=== PATIENT | male | born 1970 | race Two or more races ===

== ENCOUNTER 2017-02-23 10:53 | Day surgery (SDC) | payer OTHER ==
[~2017-02-23] VITALS: Ht 162.6 cm; Wt 60.0 kg
[~2017-02-23 10:53] MED LIST: OMEPRAZOLE20 MG PO; SUDAFED 12-HOU120 MG PO; VENTOLIN HFA18 GM INH
--- NOTE | 2017-02-23 13:31 | NUR ---
02/23/17 4089 Sammy Syed pATIENT AND HERE A LITTLE LONGER THEY HAD A LOT OF QUESTIONS AND I SPENT TIME ANSWERING AND REASSURRING THEM. I DID GIVE THEM THE PHONE NUMBER TO THE [facility] AND INSTRUCTED THEM THAT THEY MAY HAVE MORE INFO REGARDING HIS CONDITION AND WHEN THE BONE MARROW RESULTS WOULD BE AVAILABLE. pATIENT HAS A F/U APPT FOR 03/09/[address] SNOW.
--- NOTE | 2017-02-25 09:10 | OR ---
[facility] [address] [place] [address] Signed DATE OF OPERATION: 02/23/2017 SURGEON: Andrey Snow MD PROCEDURE: Left posterior iliac crest bone marrow biopsy and aspirate. DESCRIPTION OF PROCEDURE: After explaining the risks, benefits, and alternatives, the bone marrow biopsy and aspiration under conscious sedation for evaluation of chronic eosinophilia and obtaining informed written consent, the patient was taken to a private part of the postanesthesia recovery unit where a time-out was taken and the patient and the procedure were correctly identified. The patient was placed in the prone position. The left posterior iliac crest was prepped and draped in the usual sterile manner. Conscious sedation was provided by SEEMA Ayala, with 100 mcg of intravenous fentanyl and 4 mg of intravenous Versed. Local anesthesia over the left posterior iliac crest was obtained with 1 mL of 1% lidocaine and a left posterior iliac crest bone marrow biopsy and aspirate were obtained without adverse effects. Andrey Snow MD RCQ/MODL /[id number] Electronically Signed By: ANDREY SNOW MD 02/25/17 0910 PATIENT NAME: KAMALJIT TORIBIO OPERATIVE REPORT DATE OF : 74 PHYSICIAN: ANDREY SNOW MD REPORT #: [id number] REPORT IS CONFIDENTIAL AND NOT TO BE RELEASED WITHOUT AUTHORIZATION
[2017-04-15] MEDS ORDERED: FLOVENT HFA10.6 GM INH (14:06)
== END 2017-02-23 13:19 | disposition home or self-care (01) ==
LOC: DS 10:53 → OPS 10:53 → DS 12:00 → OPS 12:00
PROVIDERS: Specialist
PROC: 07DR3ZX Extraction of Iliac Bone Marrow, Percutaneous Approach, Diagnostic (ICD-10-PCS; principal; 2017-02-23 12:00)
DX: D72.1 Eosinophilia (principal); J44.9 Chronic obstructive pulmonary disease, unspecified
CPT/HCPCS: 36415; 80053; 83615; 85025; 86318; 99152; J2250; J3010; J7120

== ENCOUNTER 2017-06-14 10:14 | Day surgery (SDC) | payer OTHER ==
[~2017-06-14] VITALS: Ht 162.6 cm; Wt 60.8 kg
[~2017-06-14 10:14] MED LIST changes: +FLOVENT HFA10.6 GM INH
[2017-06-14] MEDS ORDERED: KEFLEX500 MG PO (13:22)
[2017-06-14] MEDS ORDERED: NORCO 5-325 TA1 EACH PO (13:23)
--- NOTE | 2017-06-28 14:15 | OR ---
[facility] [address], [place] [address] Signed DATE OF OPERATION: 06/14/2017 SURGEON: Albin Gonzalez MD PREOPERATIVE DIAGNOSIS: Chronic sinonasal polyposis. POSTOPERATIVE DIAGNOSIS: Chronic sinonasal polyposis. PROCEDURES: Bilateral intranasal ethmoidectomy and polypectomy. ANESTHESIA: General LMA, PHLEBOTOMIST LAB ASSISTANT, Justin. PREOPERATIVE HISTORY: Mr. Toribio is a 46-year-old man with a long history of sinus problems. He had extensive sinus surgery done in [place] 8 years ago. He has had persistent problems, loss of nasal obstruction, drainage, and some bleeding. The CAT scan of his sinuses has shown bilateral ethmoid maxillary opacification consistent with polyps and exam in the office with the scope has shown polyps in the middle meatus and the nasofrontal area and he is taken to the operating room for the above-mentioned procedures. OPERATIVE PROCEDURE AND FINDINGS: After informed consent, the patient was taken to the operating room and placed in the supine position, where general LMA anesthesia was induced. The patient and procedure were verified. Preop CT was viewed throughout. The patient received preoperative intranasal oxymetazoline and intravenous Ancef. The right side was inspected first with the headlight and speculum. Polypoid material in the nasofrontal area was taken out with the Tushar. The middle meatus also had some polypoid material, which was removed. The patient had extensive sinus surgery in the past and the ethmoid air cells were opened. Maxillary sinus ostomy was widely patent. Specimen was sent to pathology. Minimal bleeding. Packing was placed. There was a Kessler pack coated with Neosporin in the middle meatus and trimmed Merocel pack in the nasal cavity. The same findings and same procedure on the left side, possibly a bit more with polypoid material in the nasofrontal and anterior ethmoid area and in the nasal antral window. The procedure was done similar to the right side. Specimen sent separately. Packing placed as per the right. Packing was tied anteriorly over a pad. The pharynx was suctioned clear of blood secretions. The patient was then awakened, extubated, and transported to recovery Electronically Signed By: ALBIN GONZALEZ MD 06/28/17 1415 PATIENT NAME: KAMALJIT TORIBIO OPERATIVE REPORT DATE OF : 74 REPORT #: [id number] PHYSICIAN: ALBIN GONZALEZ MD PCP: HEIKE VAZQUEZ REPORT IS CONFIDENTIAL AND NOT TO BE RELEASED WITHOUT AUTHORIZATION [facility] [address] [place] [id number] Signed room in good condition. COMPLICATIONS: No complications. BLOOD LOSS: Minimal. SPECIMEN: To pathology. PACKING: Two pieces of Merocel each nostril. Albin Gonzalez MD GC/NIMISHAL /[id number] Copies: ~ Electronically Signed By: ALBIN GONZALEZ MD 06/28/17 1415 PATIENT NAME: KAMALJIT TORIBIO OPERATIVE REPORT DATE OF : 74 REPORT #: [id number] PHYSICIAN: ALBIN GONZALEZ MD PCP: HEIKE VAZQUEZ REPORT IS CONFIDENTIAL AND NOT TO BE RELEASED WITHOUT AUTHORIZATION
== END 2017-06-14 15:20 | disposition home or self-care (01) ==
LOC: OPS 10:14 → DS 10:14 → OPS 11:30
PROVIDERS: Otolaryngology
PROC: 09BU8ZZ Excision of Right Ethmoid Sinus, Via Natural or Artificial Opening Endoscopic (ICD-10-PCS; 2017-06-14)
PROC: 09BV8ZZ Excision of Left Ethmoid Sinus, Via Natural or Artificial Opening Endoscopic (ICD-10-PCS; principal; 2017-06-14 11:30)
DX: J32.2 Chronic ethmoidal sinusitis (principal); J33.8 Other polyp of sinus; C95.90 Leukemia, unspecified not having achieved remission; K21.9 Gastro-esophageal reflux disease without esophagitis; J18.9 Pneumonia, unspecified organism; J45.909 Unspecified asthma, uncomplicated; Z98.890 Other specified postprocedural states; Z79.899 Other long term (current) drug therapy
CPT/HCPCS: 00160; 88305; 88311; J0690; J1100; J2405; J2704; J2765; J3010; J7120